=== PATIENT | female | born 1960 | race Caucasian/White ===

== ENCOUNTER 2019-01-06 11:57 | Emergency (ER) | payer OTHER ==
--- NOTE | 2019-01-06 12:32 | EDM.PDOC ---
ED HPI GENERAL MEDICAL PROBLEM - General Chief Complaint: Burn Stated Complaint: ARM INJURY Time Seen by Provider: 01/06/19 12:12 Source of Information: Reports: Patient History Limitations: Reports: No Limitations - History of Present Illness INITIAL COMMENTS - FREE TEXT/NARRATIVE: HISTORY AND PHYSICAL: History of present illness: Presents reporting she burned her right elbow on an oven at work 5 days ago. She has been keeping the burn clean and covered. She just wants to make sure it' s not infected. She has no other medical problems. Denies fever, expanding redness at the site, purulent discharge, rapid heartbeat. Review of systems: As per history of present illness and below otherwise all systems reviewed and negative. Past medical history: As per history of present illness and as reviewed below otherwise noncontributory. Surgical history: As per history of present illness and as reviewed below otherwise noncontributory. Social history: No reported history of drug or alcohol abuse. Family history: As per history of present illness and as reviewed below otherwise noncontributory. Physical exam: HEENT: Atraumatic, normocephalic, pupils reactive, negative for conjunctival pallor or scleral icterus, mucous membranes moist, throat clear, neck supple, nontender, trachea midline. Lungs: Clear to auscultation, breath sounds equal bilaterally, chest nontender. Heart: S1S2, regular, negative for clicks, rubs, or JVD. Abdomen: Soft, nondistended, nontender. Negative for masses or hepatosplenomegaly. Negative for costovertebral tenderness. Pelvis: Stable nontender. Genitourinary: Deferred. Rectal: Deferred. Extremities: Atraumatic, negative for cords or calf pain. Neurovascular unremarkable. Neuro: Awake, alert, oriented. Cranial nerves II through XII unremarkable. Cerebellum unremarkable. Motor and sensory unremarkable throughout. Exam nonfocal. Diagnostics: [] Therapeutics: [] Impression: [] Plan: [] Definitive disposition and diagnosis as appropriate pending reevaluation and review of above. - Related Data Allergies Allergy/AdvReac Type Severity Reaction Status Date / Time amoxicillin [From Augmentin] Allergy Swelling Verified 01/06/19 12:10 clavulanic acid Allergy Swelling Verified 01/06/19 12:10 [From Augmentin] cyclobenzaprine Allergy Swelling Verified 01/06/19 12:10 [From Flexeril] morphine Allergy Disorientat Verified 01/06/19 12:10 ion Home Meds: Home Meds Baclofen 10 mg PO DAILY 01/06/19 [History] Levothyroxine [Levothroid] 137 mcg PO DAILY 01/06/19 [History] Meloxicam 15 mg PO DAILY 01/06/19 [History] Past Medical History HEENT History: Reports: Allergic Rhinitis, Sinusitis Musculoskeletal History: Reports: Arthritis Other Musculoskeletal History: muscle spasms. - Past Surgical History HEENT Surgical History: Reports: Naso-Sinus Surgery, Tonsillectomy GI Surgical History: Reports: Cholecystectomy Female Surgical History: Reports: Hysterectomy, Nephrectomy, Other (See Below ) Other Female Surgeries/Procedures: pyloroplasty Neurological Surgical History: Reports: Laminectomy Other Musculoskeletal Surgeries/Procedures:: right knee surgery. left foot surgery. Social & Family History - Family History Family Medical History: Noncontributory - Tobacco Use Smoking Status *Q: Never Smoker - Caffeine Use Caffeine Use: Reports: Coffee - Recreational Drug Use Recreational Drug Use: No ED ROS GENERAL - Review of Systems Review Of Systems: ROS reveals no pertinent complaints other than HPI. ED EXAM, BURN/SMOKE INHALATION - Physical Exam Exam: See Below Exam Limited By: No Limitations General Appearance: Alert, No Apparent Distress Ears (Abbreviated): Normal External Exam Mouth/Throat: No Symptoms Reported Head: No Symptoms Neck: No Symptoms Respiratory: No Respiratory Distress Cardiovascular: Normal Peripheral Pulses Neurological: Alert, Oriented Psychiatric: Normal Affect Skin Exam: Warm, Dry, Normal Color, No Rash, Other (Right distal upper arm 4 x 3 cm superficial burn with deroofed blister. Clean dry, scabbed around the outside, no purulent drainage. No surrounding erythema area did full range of motion of the right elbow wrist and digits without hesitation or limitation. CMS intact distally) Course - Vital Signs Last Recorded V/S: Last Vital Signs Temp 37.1 C 01/06/19 12:12 Pulse 76 01/06/19 12:12 Resp 15 01/06/19 12:12 BP 117/64 01/06/19 12:12 Pulse Ox 98 01/06/19 12:12 Departure - Departure Time of Disposition: 12:31 Disposition: Home, Self-Care 01 Condition: Good Clinical Impression: Thermal burn - Discharge Information Referrals: PCP,Unknown [Primary Care Provider] - [facility] [Outside] [facility] [Outside] Additional Instructions: The following information is given to patients seen in the emergency department who are being discharged to home. This information is to outline your options for follow-up care. We provide all patients seen in our emergency department with a follow-up referral. The need for follow-up, as well as the timing and circumstances, are variable depending upon the specifics of your emergency department visit. If you don't have a primary care physician on staff, we will provide you with a referral. We always advise you to contact your personal physician following an emergency department visit to inform them of the circumstance of the visit and for follow-up with them and/or the need for any referrals to a consulting specialist. The emergency department will also refer you to a specialist when appropriate. This referral assures that you have the opportunity for follow-up care with a specialist. All of these measure are taken in an effort to provide you with optimal care, which includes your follow-up. Under all circumstances we always encourage you to contact your private physician who remains a resource for coordinating your care. When calling for follow-up care, please make the office aware that this follow-up is from your recent emergency room visit. If for any reason you are refused follow-up, please contact the [facility] Emergency Department at and asked to speak to the emergency department charge nurse. 1. Keep clean and dry as you have been doing 2. Leave open to air when not working and in a clean environment. 3. Watch for signs of infection: Expanding redness, purulent discharge report promptly
== END 2019-01-06 12:56 | disposition home or self-care (01) ==
LOC: MW.ED 11:57
DX: T22.221A Burn of second degree of right elbow, initial encounter (principal); Z88.1 Allergy status to other antibiotic agents; Z88.5 Allergy status to narcotic agent; Z79.899 Other long term (current) drug therapy; Z90.49 Acquired absence of other specified parts of digestive tract; Z98.890 Other specified postprocedural states; Z90.710 Acquired absence of both cervix and uterus; X19.XXXA Contact with other heat and hot substances, initial encounter
CPT/HCPCS: 99282; 99283

== ENCOUNTER 2019-01-18 15:44 | Emergency (ER) | payer OTHER ==
[2019-01-18] MEDS ORDERED: methylPREDNISolone Sodium Succinate 125 MG/2 ML SDV IM ONE (16:25)
[2019-01-18] MEDS ORDERED: Ketorolac 60 MG/2 ML SDV IM ONE (16:26)
--- NOTE | 2019-01-18 16:29 | EDM.PDOC ---
ED HPI GENERAL MEDICAL PROBLEM - General Chief Complaint: Back Pain or Injury Stated Complaint: BACK PAIN Time Seen by Provider: 01/18/19 16:17 Source of Information: Reports: Patient History Limitations: Reports: No Limitations - History of Present Illness INITIAL COMMENTS - FREE TEXT/NARRATIVE: HISTORY AND PHYSICAL: History of present illness: Patient is a 58-year-old female presents to the ED today with concern of low back pain 2 days. Patient states she has a history of chronic low back pain has had several surgeries on her back. Patient states starting yesterday she started getting a flareup of her low back and feels that it radiates down her right foot. Patient states that the pain has been significant enough that she feels like she can't move her right leg due to pain but she is still capable of removing it. Patient denies any loss or retention of bowel and bladder function. Patient denies any saddle anesthesia. Patient denies fever, chills, chest pain, shortness of breath, or cough. Denies headache, neck stiff ness, change in vision, syncope, or near syncope. Denies nausea, vomiting, abdominal pain, diarrhea, constipation, or dysuria. Has not noted any blood in urine or stool. Patient has been eating and drinking appropriately. Review of systems: As per history of present illness and below otherwise all systems reviewed and negative. Past medical history: As per history of present illness and as reviewed below otherwise noncontributory. Surgical history: As per history of present illness and as reviewed below otherwise noncontributory. Social history: See social history for further information Family history: As per history of present illness and as reviewed below otherwise noncontributory. Physical exam: General: Patient is alert, oriented, and in no acute distress. Patient sitting comfortably on exam table. HEENT: Atraumatic, normocephalic, pupils equal and reactive bilaterally, negative for conjunctival pallor or scleral icterus, mucous membranes moist, TMs normal bilaterally, throat clear, neck supple, nontender, trachea midline. No drooling or trismus noted. No meningeal signs. No hot potato voice noted. Lungs: Clear to auscultation, breath sounds equal bilaterally, chest nontender. Heart: S1S2, regular rate and rhythm without overt murmur Abdomen: Soft, nondistended, nontender. Negative for masses or hepatosplenomegaly. Negative for costovertebral tenderness. Pelvis: Stable nontender. Genitourinary: Deferred. Rectal: Rectal tone intact Skin: Intact, warm, dry. No lesions or rashes noted. Extremities: Atraumatic, negative for cords or calf pain. Neurovascular unremarkable. No obvious deformities of the complete spine. No step-offs, crepitus, or pain with palpation of the spinous process. Patient does have moderate to severe pain with palpation of the surrounding paraspinous muscles of the lumbar spine. Patient has full range of motion of cervical and thoracic but limited range of motion of lumbar spine due to pain. straight leg raise intact bilaterally. Tip toe gait intact. Heel gait intact. Patellar reflexes intact bilaterally. Neuro: Awake, alert, oriented. Cranial nerves II through XII unremarkable. Cerebellum unremarkable. Motor and sensory unremarkable throughout. Exam nonfocal. Notes: Dr. Cabrera verbally involved in patient care. Discussed the importance for follow-up with the primary care provider. Voices understanding and is agreeable to plan of care. Denies any further questions or concerns at this time. Diagnostics: Lumbar CT Therapeutics: Solu-Medrol, Toradol, Norflex Prescription: Medrol dose pack, Diclofenac Impression: Multilevel bulging disc of the lumbar spine Plan: 1. Rest, ice, or heat affected area. You can apply ice and/or heat 15 minutes on , 15 minutes off. 2. Tylenol as directed for pain management or discomfort. Take medication as prescribed 3. Follow up with the primary care provider as discussed. Return to the ED as needed and as discussed. Definitive disposition and diagnosis as appropriate pending reevaluation and review of above. Right Leg Pain Score (Numeric/FACES): 10 - Related Data Allergies Allergy/AdvReac Type Severity Reaction Status Date / Time amoxicillin [From Augmentin] Allergy Swelling Verified 01/18/19 16:20 clavulanic acid Allergy Swelling Verified 01/18/19 16:20 [From Augmentin] cyclobenzaprine Allergy Swelling Verified 01/18/19 16:20 [From Flexeril] morphine Allergy Disorientat Verified 01/18/19 16:20 ion Home Meds: Home Meds Baclofen 10 mg PO DAILY 01/06/19 [History] Levothyroxine [Levothroid] 137 mcg PO DAILY 01/06/19 [History] Meloxicam 15 mg PO DAILY 01/06/19 [History] Diclofenac Sodium [Voltaren] 75 mg PO BIDMEALS PRN #15 tab.cr 01/18/19 [Rx] Past Medical History HEENT History: Reports: Allergic Rhinitis, Sinusitis Musculoskeletal History: Reports: Arthritis Other Musculoskeletal History: muscle spasms. - Past Surgical History HEENT Surgical History: Reports: Naso-Sinus Surgery, Tonsillectomy GI Surgical History: Reports: Cholecystectomy Female Surgical History: Reports: Hysterectomy, Nephrectomy, Other (See Below ) Other Female Surgeries/Procedures: pyloroplasty Neurological Surgical History: Reports: Laminectomy Other Musculoskeletal Surgeries/Procedures:: right knee surgery. left foot surgery. Social & Family History - Family History Family Medical History: Noncontributory - Caffeine Use Caffeine Use: Reports: Coffee ED ROS GENERAL - Review of Systems Review Of Systems: ROS reveals no pertinent complaints other than HPI. ED EXAM, GENERAL - Physical Exam Exam: See Below (See dictation) Course - Vital Signs Last Recorded V/S: Last Vital Signs Temp 37.2 C 01/18/19 16:21 Pulse 96 01/18/19 16:21 Resp 18 01/18/19 16:21 BP 113/86 01/18/19 16:21 Pulse Ox 96 01/18/19 16:21 - Orders/Labs/Meds Meds: Medications Discontinued Medications Generic Name Dose Route Start Last Admin Trade Name Vamsi PRN Reason Stop Dose Admin Ketorolac Tromethamine 60 mg 01/18/19 16:26 01/18/19 16:34 Toradol IM 01/18/19 16:27 60 mg ONETIME ONE Administration Methylprednisolone Sodium Succinate 125 mg 01/18/19 16:25 01/18/19 16:33 Solu-Medrol IM 01/18/19 16:26 125 mg ONETIME ONE Administration Orphenadrine Citrate 60 mg 01/18/19 16:26 01/18/19 16:34 Norflex IM 01/18/19 16:27 60 mg NOW STA Administration Departure - Departure Time of Disposition: 17:40 Disposition: Home, Self-Care 01 Clinical Impression: Bulging discs - Discharge Information Prescriptions: Diclofenac Sodium [Voltaren] 75 mg PO BIDMEALS PRN #15 tab.cr PRN Reason: Pain Instructions: Herniated Disk, [id number] Referrals: PCP,None [Primary Care Provider] - Forms: ED Department Discharge Additional Instructions: The following information is given to patients seen in the emergency department who are being discharged to home. This information is to outline your options for follow-up care. We provide all patients seen in our emergency department with a follow-up referral. The need for follow-up, as well as the timing and circumstances, are variable depending upon the specifics of your emergency department visit. If you don't have a primary care physician on staff, we will provide you with a referral. We always advise you to contact your personal physician following an emergency department visit to inform them of the circumstance of the visit and for follow-up with them and/or the need for any referrals to a consulting specialist. The emergency department will also refer you to a specialist when appropriate. This referral assures that you have the opportunity for follow-up care with a specialist. All of these measure are taken in an effort to provide you with optimal care, which includes your follow-up. Under all circumstances we always encourage you to contact your private physician who remains a resource for coordinating your care. When calling for follow-up care, please make the office aware that this follow-up is from your recent emergency room visit. If for any reason you are refused follow-up, please contact the [facility] Emergency Department at and asked to speak to the emergency department charge nurse. [facility] [address] [place] [id number] [place] [id number] 1. Rest, ice, or heat affected area. You can apply ice and/or heat 15 minutes on , 15 minutes off. 2. Tylenol as directed for pain management or discomfort. Take medication as prescribed 3. Follow up with the primary care provider as discussed. Return to the ED as needed and as discussed.
--- NOTE | 2019-01-18 17:36 | CT ---
INDICATION: Low back pain. TECHNIQUE: Noncontrast CT images were obtained through the lumbar spine. COMPARISON: None. FINDINGS: Mild straightening of the lumbar lordosis. Vertebral heights are maintained. No acute fracture. T12-L1: No spinal canal or neural foraminal narrowing. L1-2: Trace retrolisthesis. Wjcq-km-[id number] disc height loss. Posterior disc bulging. Endplate spondylitic ridging. Mild bilateral facet arthropathy. No spinal canal or neural foraminal narrowing. L2-3: Dwky-hn-hrscnrkm disc height loss. Posterior disc bulge. Endplate spondylitic ridging. No spinal canal or neural foraminal narrowing. L3-4: Rnlh-xi-bjesrohx disc height loss. Shallow posterior disc bulge. Mild bilateral facet arthrosis. No spinal canal or neural foraminal narrowing. L4-5: Shallow posterior disc bulge. Mild to moderate right and mild left facet arthropathy. Mild spinal canal narrowing. Mild bilateral neural foraminal narrowing. L5-S1: Advanced disc degeneration and disc height loss. Posterior disc bulging and endplate spondylitic ridging. Ngjk-ns-ulelkfua bilateral facet arthropathy. No spinal canal narrowing. Moderate left greater than right neural foraminal narrowing. Sacroiliac joint degenerative changes. Multiple surgical clips within the right retroperitoneal region. IMPRESSION: 1. No acute fracture. 2. At L5-S1, moderate bilateral neural foraminal narrowing with left greater than right exiting L5 nerve root encroachment/impingement. 3. Wpex-ep-koamtzrs facet arthropathy at L4-5 and L5-S1. Please note that all CT scans at this facility use dose modulation, iterative reconstruction, and/or weight-based dosing when appropriate to reduce radiation dose to as low as reasonably achievable. Dictated by Colin Kincaid MD @ Jan 21 2019 8:39AM Signed by Dr. Colin Kincaid @ Jan 21 2019 8:50AM
== END 2019-01-18 17:58 | disposition home or self-care (01) ==
LOC: MW.ED 15:44
DX: M51.26 Other intervertebral disc displacement, lumbar region (principal); Z88.1 Allergy status to other antibiotic agents; Z88.5 Allergy status to narcotic agent; Z88.8 Allergy status to other drugs, medicaments and biological substances; Z79.899 Other long term (current) drug therapy
CPT/HCPCS: 72131; 96372; 99283; J1885; J2360; J2930

== ENCOUNTER 2023-01-24 15:23 | Emergency (ER) | payer BC, OTHER ==
[2023-01-24] MEDS ORDERED: Acetaminophen/oxyCODONE 325-10 MG Tab PO ONE (15:47)
== END 2023-01-24 18:07 | disposition home or self-care (01) ==
LOC: MW.ED 15:23
DX: S82.092A Other fracture of left patella, initial encounter for closed fracture (principal); Z88.0 Allergy status to penicillin; Z88.5 Allergy status to narcotic agent; Z88.8 Allergy status to other drugs, medicaments and biological substances; W19.XXXA Unspecified fall, initial encounter
CPT/HCPCS: 73562; 99283; A9270

== ENCOUNTER 2023-01-30 09:16 | Day surgery (SDC) | payer OTHER, BC ==
[~2023-01-30 09:16] MED LIST: Lactated Ringers 1,000 ML IV SCH; ceFAZolin 2 GM in Sodium Chloride 0.9% 50 ML IV ONE
[2023-01-30] MEDS ORDERED: Albuterol 0.083% 2.5 MG/3 ML Neb Soln NEB PRN (09:40)
[2023-01-30] MEDS ORDERED: Metoclopramide 10 MG/2 ML SDV IVPUSH PRN (09:40)
[2023-01-30] MEDS ORDERED: Naloxone 0.4 MG/ML SDV IVPUSH PRN (09:40)
[2023-01-30] MEDS ORDERED: droPERidol 5 MG/2 ML SDV IVPUSH PRN (09:40)
[2023-01-30] MEDS ORDERED: Morphine 2 MG/ML SYRINGE IVPUSH PRN (09:40)
[2023-01-30] MEDS ORDERED: fentaNYL 50 MCG/ML SDV IVPUSH PRN (09:40)
[2023-01-30] MEDS ORDERED: HYDROmorphone 1 MG/ML Syringe IVPUSH PRN (09:40)
[2023-01-30] MEDS ORDERED: Ondansetron 4 MG/2 ML SDV IVPUSH PRN (09:40)
[2023-01-30 10:09] LABS: CALCIUM 9.2 mg/dL (8.5-10.1); CARBON DIOXIDE,CO2 28.6 mmol/L (21.0-32.0); EST CRCL DRUG DOSING (CG) 60.18 mL/min; POTASSIUM,K 4.1 mmol/L (3.5-5.1)
[2023-01-30] MEDS ORDERED: Ropivacaine 0.5% 5 MG/ML 30 ML SDV ONE (10:16)
[2023-01-30] MEDS ORDERED: propofoL 50 ML ONE (11:24)
[2023-01-30] MEDS ORDERED: Lidocaine 1% 5 ML VIAL ONE (11:25)
[2023-01-30] MEDS ORDERED: Ondansetron 4 MG/2 ML SDV ONE (11:25)
[2023-01-30] MEDS ORDERED: Midazolam 1 MG/ML 2 ML SDV ONE (11:28)
[2023-01-30] MEDS ORDERED: ceFAZolin 2 GM Vial ONE (11:29)
[2023-01-30] MEDS ORDERED: Phenylephrine HCl 0.5 MG/5 ML AMP ONE (11:56)
[2023-01-30] MEDS ORDERED: ePHEDrine 50 MG/ML SDV ONE (14:05)
== END 2023-01-30 14:35 | disposition home or self-care (01) ==
LOC: MW.SDS 09:16
PROVIDERS: ATTEND Orthopaedic Surgery
DX: S82.042A Displaced comminuted fracture of left patella, initial encounter for closed fracture (principal); I48.91 Unspecified atrial fibrillation; K21.9 Gastro-esophageal reflux disease without esophagitis; M19.90 Unspecified osteoarthritis, unspecified site; G43.909 Migraine, unspecified, not intractable, without status migrainosus; E03.9 Hypothyroidism, unspecified; Z79.82 Long term (current) use of aspirin; Z79.890 Hormone replacement therapy; Z79.899 Other long term (current) drug therapy; Z88.0 Allergy status to penicillin; Z88.5 Allergy status to narcotic agent; Z88.8 Allergy status to other drugs, medicaments and biological substances; Z79.1 Long term (current) use of non-steroidal anti-inflammatories (NSAID); Z91.048 Other nonmedicinal substance allergy status; W19.XXXA Unspecified fall, initial encounter
CPT/HCPCS: 27524; 36415; 64447; 76000; 80048; J0131; J0690; J2250; J2370; J2405; J2704; J2795; J7120; 01392; J3490